=== PATIENT | male | born 2000 | race Caucasian/White ===

== ENCOUNTER 2021-08-30 12:23 | Emergency (ER) | payer OTHER ==
[2021-08-30 13:02] VITALS: BP 130/75; PULSE 73; TEMP 98; BMI 32.6
== END 2021-08-30 13:53 | disposition home or self-care (01) ==
LOC: JERFT 12:23
DX: S62.001A Unspecified fracture of navicular [scaphoid] bone of right wrist, initial encounter for closed fracture (principal); V49.9XXA Car occupant (driver) (passenger) injured in unspecified traffic accident, initial encounter
CPT/HCPCS: 99283-25; C9803; U0003; U0005

== ENCOUNTER 2024-06-07 12:42 | Emergency (ER) | payer OTHER ==
[2024-06-07 12:50] VITALS: BP 137/69; PULSE 73; RESP 18; TEMP 99; BMI 31.3
[2024-06-07] MEDS: SODIUM CHLORIDE 0.9% 500 ML INFUS.BAG IV ONE (15:40)
[2024-06-07 15:50] LABS: BASO % 0.2 % (0-2.0); EOS % 0.6 % (0-4.5); HEMATOCRIT 48.7 % (35.4-49); LYMPH % 19.6 % (8-40); MCH 30.4 pg (25.7-33.7); MCHC 32.9 g/dl (32.0-35.9); MEAN CELL VOLUME 92.6 fl (80-96); MEAN PLT VOLUME 8.8 fl (7.5-11.1); MONO % 7.5 % (3.8-10.2); NEUT % 72.1 % (42.8-82.8); PLATELET COUNT 175 10^3/uL (134-434); RBC 5.26 M/mm3 (4.00-5.60); RDW 14.1 % (11.9-15.9); WHITE BLOOD COUNT 12.7 K/mm3 (4.0-10.0)
[2024-06-07 16:37] LABS: CHLORIDE 106 mmol/L (98-107); POTASSIUM 3.7 mmol/L (3.5-5.1); SODIUM 139 mmol/L (136-145)
[2024-06-07 16:41] LABS: GLUCOSE,RANDOM 83 mg/dL (74-106)
[2024-06-07 16:43] LABS: CALCIUM 9.6 mg/dL (8.5-10.1); SGOT/AST 21 U/L (15-37)
[2024-06-07 16:45] LABS: ALBUMIN 4.4 g/dl (3.4-5.0); ANION GAP 9 mmol/L (4-13); BILIRUBIN,TOTAL 0.7 mg/dL (0.2-1); CO2 25 mmol/L (21-32)
[2024-06-07 16:46] LABS: ALK PHOS 79 U/L (45-117); BLOOD UREA NITROGEN 13.6 mg/dL (7-18); TOT PROT 7.8 g/dl (6.4-8.2)
[2024-06-07 16:48] LABS: CREATININE 0.8 mg/dL (0.55-1.3)
[2024-06-07 16:49] LABS: SGPT/ALT 24 U/L (13-61)
[2024-06-07 17:22] LABS: EPI CELLS 3 /uL (0-25.1); HYALINE CASTS 37 /uL (0-3.1); URINE APPEARANCE TURBID; URINE BILIRUBIN 1+ (NEGATIVE); URINE COLOR RED; URINE GLUCOSE (UA) NEGATIVE (NEGATIVE); URINE KETONE NEGATIVE (NEGATIVE); URINE LEUK ESTERASE 2+ (NEGATIVE); URINE NITRITE POSITIVE (NEGATIVE); URINE PROTEIN 2+ (NEGATIVE); URINE RBC 18662 /uL (0-23.9); URINE UROBILINOGEN 0.2 mg/dL (0.2-1.0); URINE WBC 16 /uL (0-25.8)
[2024-06-07 17:59] LABS: URINE BACTERIA 0 /uL (0-1359)
== END 2024-06-07 21:00 | disposition home or self-care (01) ==
LOC: JER 12:42
DX: N30.01 Acute cystitis with hematuria (principal)
CPT/HCPCS: 36415; 74177-TC; 76870-TC; 80053; 81003; 82550; 82553; 85025; 87086; 87491; 87591; 87661; 99285-25; Q9967